=== PATIENT | male | born 2005 | race African-American/Black ===

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

== ENCOUNTER 2024-07-26 18:48 | Observation (INO) | payer OTHER ==
[~2024-07-26] VITALS: Ht 182.9 cm; Wt 70.4 kg
[2024-07-26 20:27] LABS: BASOPHILS ABSOLUTE AUTO 0.04 K/mm3 (0.00-0.23); BASOPHILS PERCENT AUTO 1 % (0-2); EOSINOPHILS ABSOLUTE AUTO 0.17 K/mm3 (0.00-0.68); EOSINOPHILS PERCENT AUTO 3 % (0-6); Hematocrit 34.7 % (37.0-53.0); Hemoglobin 11.6 g/dL (13.5-17.5); IMMATURE GRAN ABSOLUTE AUTO 0.02 K/mm3 (0.00-0.10); IMMATURE GRAN PERCENT AUTO 0 % (0-1); LYMPHOCYTES ABSOLUTE AUTO 1.82 K/mm3 (0.84-5.20); LYMPHOCYTES PERCENT AUTO 26 % (21-46); MONOCYTES ABSOLUTE AUTO 0.54 K/mm3 (0.16-1.47); MONOCYTES PERCENT AUTO 8 % (4-13); Mean Corpuscular HGB 27.1 pg (26.0-34.0); Mean Corpuscular HGB Conc 33.4 g/dL (31.5-36.5); Mean Corpuscular Volume 81 fL (80-100); Mean Platelet Volume 10.3 fL (9.1-12.4); NEUTROPHILS ABSOLUTE AUTO 4.31 K/mm3 (1.96-9.15); NEUTROPHILS PERCENT AUTO 62 % (41-73); Platelet Count 286 K/mm3 (150-400); RDW Coefficient Variation 13.2 % (11.7-14.2); RDW Standard Deviation 39.3 fL (35.1-46.3); Red Blood Cell Count 4.28 M/mm3 (4.30-5.90)
[2024-07-26 20:42] LABS: Salicylate <1.7 mg/dL (2.8-20.0)
[2024-07-26 20:57] LABS: Alanine Aminotransfer (ALT/SGP 24 U/L (12-78); Albumin/Globulin Ratio 1.1 (0.8-1.8); Alk Phos 115 U/L (58-237); Anion Gap 9 mmol/L (3-11); Aspartate Aminotrans (AST/SGOT 21 U/L (12-37); Bilirubin, Total 0.4 mg/dL (0.1-1.0); Blood Urea Nitrogen 13 mg/dL (8-21); CO2, Blood 26 mmol/L (21-32); Chloride, Blood 106 mmol/L (98-108); Globulin, Blood 3.5 g/dL (2.2-4.0); Glomerular Filtration Rate 111 (60-); Glucose, Blood 87 mg/dL (70-99); Potassium, Blood 4.1 mmol/L (3.5-5.5); Sodium, Blood 137 mmol/L (136-145); Total Protein, Blood 7.5 g/dL (6.4-8.2)
[2024-07-26 20:58] LABS: Source, Urine Clean Catch
[2024-07-26 20:58] LABS: Acetaminophen, Random <2.0 ug/mL (10.0-30.0); Ethanol (Alcohol), Blood, Med <3 mg/dL
[2024-07-26 21:18] LABS: Appearance, Urine Clear (Clear); Bilirubin, Urine Neg (Neg); Blood, Urine Neg (Neg); Color, Urine Yellow (P-Yellow); Glucose Qualitative, Urine Neg (Neg); Ketones, Urine Neg (Neg); Leukocyte Esterase, Urine Neg (Neg); Nitrite, Urine Neg (Neg); Protein, Urine 1+ (Neg); Specific Gravity, Urine 1.015 (1.003-1.022); Urobilinogen, Urine NORM (Normal); pH, Urine 6.5 (5.0-8.0)
[2024-07-26 21:45] LABS: U Amphetamine Screen Not Detected; U Barbituate Screen Not Detected; U Benzodiazapine Screen Not Detected; U Buprenorphine Screen Not Detected; U Cannabinoids Screen Not Detected; U Cocaine Screen Not Detected; U Methadone Screen Not Detected; U Methamphetamine Screen Not Detected; U Opiates Screen Not Detected; U Oxycodone Screen Not Detected; U Phencyclidine Screen Not Detected
[2024-07-26] MEDS ORDERED: Melatonin 5 MG Tablet PO ONE (23:55)
[2024-07-27] MEDS ORDERED: CATAPRES0.1 MG PO ×2 (12:41→12:42)
[2024-07-27] MEDS ORDERED: CATAPRES0.2 M1 PO (12:42)
== END 2024-07-27 11:03 | disposition other institution (70) ==
LOC: ER 18:48 → EOR 18:49
PROVIDERS: Student in an Organized Health Care Education/Training Program; ADMIT Student in an Organized Health Care Education/Training Program
DX: F43.25 Adjustment disorder with mixed disturbance of emotions and conduct (principal); R45.851 Suicidal ideations; F41.9 Anxiety disorder, unspecified; F32.9 Major depressive disorder, single episode, unspecified; Z79.899 Other long term (current) drug therapy
CPT/HCPCS: 80053; 80320; 85025; 93005; 93010; 99285-25; A9270; G0378; G0480

== ENCOUNTER 2024-07-27 09:32 | Inpatient (IN) | payer OTHER ==
[~2024-07-27] VITALS: Ht 177.8 cm; Wt 68.1 kg
[2024-07-27 11:02] VITALS: BP 119/73
[2024-07-27] MEDS ORDERED: DiphenhydrAMINE HCl 50 MG/ML 1ML Vial IM PRN (11:05)
[2024-07-27] MEDS ORDERED: Haloperidol Lactate Inj. 5 MG/ML Injection IM PRN (11:05)
[2024-07-27] MEDS ORDERED: Acetaminophen 325 MG TABLET PO PRN (11:10)
[2024-07-27] MEDS ORDERED: Aluminum Hydroxide 320MG/5ML 473 ML PO PRN (11:10)
[2024-07-27] MEDS ORDERED: Melatonin 3 MG Tab PO PRN (11:10)
[2024-07-27] MEDS ORDERED: LORazepam 2 MG/ML 1ML Injection IM PRN (11:10)
[2024-07-27] MEDS ORDERED: Calcium Carbonate 500 MG Tab Chew PO PRN (11:10)
[2024-07-27] MEDS ORDERED: DiphenhydrAMINE HCl 50 MG Cap PO PRN (11:10)
[2024-07-27] MEDS ORDERED: TraZODone HCl 50 MG Tab PO PRN (11:15)
[2024-07-27] MEDS ORDERED: Haloperidol 5 MG Tab PO PRN (11:15)
[2024-07-27] MEDS ORDERED: Ibuprofen 600 MG Tab PO PRN (11:15)
[2024-07-27] MEDS ORDERED: Ondansetron 4 MG SoluTab MM PRN (11:15)
[2024-07-27] MEDS ORDERED: HydrOXYzine Pamoate 50 MG Cap PO PRN (11:15)
[2024-07-27] MEDS ORDERED: Polyethylene Glycol 3350 17 gm PO PRN (11:15)
[2024-07-27] MEDS ORDERED: OLANZapine ODT 10 MG Tab MM PRN (11:15)
[2024-07-27] MEDS ORDERED: LORazepam 2 MG Tab PO PRN (11:20)
[2024-07-27] MEDS ORDERED: CATAPRES0.1 MG PO ×2 (12:41→12:42)
[2024-07-27] MEDS ORDERED: CATAPRES0.2 M1 PO (12:42)
--- NOTE | 2024-07-27 13:33 | NUR ---
TERESA GOES BY "[facility]," HE COMES IN FROM [place], HE WAS MEETING WITH HIS PSYCHIATRIST REMOTELY WHILE AT [facility] [employer], HE HAS BEEN FEELING MORE ANXIOUS AND "LOW," HE HAS CUT HIS INNER ARM A FEW TIMES OVER THE LAST COUPLE OF WEEKS, NOT IN AN ATTEMPT TO KILL HIMSELF BUT BECAUSE HE FELT BAD ABOUT HIMSELF AND THAT HE FEELS HE NEEDS TO FEEL THE PAIN, ABOUT A MONTH AGO HE WAS FEELING SUICIDAL AND AFTER GETTING "MARINA DRUNK," HE WAS JUMPING OUT IN FRONT OF CARS WITH THE INTENT TO KILL HIMSELF, HE WAS ABLE TO STOP HIMSELF FROM COMPLETING THIS. hE STATES HE WAS DIAGNOSED WITH BIPOLAR I AT 17YO, HE HAS HAD SOME PSYCHOSIS EPISODES A FEW YEARS AGO AFTER ILLICIT SUBSTANCE USE, DENIES ANY CURRENT //. HE HAS TAKEN ZYPREXA IN THE PAST, THIS CAUSED WEIGHT GAIN AND PT STOPPED TAKING THIS, PT HAS TAKEN ABILIFY RECENTLY, HOWEVER HE STOPPED THIS BECAUSE HE FELT TOO "NUMB."
[2024-07-27] MEDS ORDERED: Nicotine 21 MG PATCH TOP ONE (14:45)
[2024-07-27] MEDS ORDERED: Nicotine Polacrilex 2 MG Gum PO PRN (15:00)
--- NOTE | 2024-07-27 16:42 | NUR ---
SHIFT SUMMARY ASSUMED CARE PT AT 1600, SINCE THAT TIME PT HAS BEEN IN THE MILIEU, ENGAGING WITH HIS PEERS, APPROPRIATE AND COOPERATIVE, INVOLVED IN GROUPS/SNACK, HE HAS RECEIVED ONGOING Q15 MIN VISUAL SAFETY CHECKS THROUGHOUT THE SHIFT
--- NOTE | 2024-07-27 19:10 | NUR ---
PIERCINGS PT NOTED TO HAVE SEPTUM AND A RIGHT EAR PIERCINGS IN PLACE AND INTACT. WAS UNABLE TO REMOVE PIERCINGS. PT VERBALLY CONTRACTED FOR SAFETY.
[2024-07-27 19:32] VITALS: BP 136/72
--- NOTE | 2024-07-28 04:27 | NUR ---
SHIFT SUMMARY PT PRESENT IN HALLWAY INTERACTING WITH PEERS AT START OF SHIFT. PT DENIES ANY SI, HI, THOUGHTS OF SELF HARM OR HALLUCINATIONS. MOOD IS ELEVATED. PT VOICED CONCERN AND APPEARS MOTIVATED TO GET BACK TO THE [employer]. SUPERFICIAL CUTS OBSERVED TO FOREARMS (3 TO LEFT ARM AND 2 TO RIGHT ARM), THAT APPEAR TO BE HEALING WITH NO SIGNS OF INFECTION. PT HAD EVENING SNACK. RECEIVED PRN MELATONIN AND TRAZODONE X2 AND HAS APPEARED TO SLEEP THROUGHOUT THE NIGHT, WITH RESPIRATIONS CONFIRMED. Q15 MINUTE CHECKS TO CONTINUE PER UNIT PROTOCOL/PT SAFETY.
[2024-07-28 06:29] LABS: CHOL/HDL RATIO 2.3; Cholesterol 121 mg/dL (50-200); HDL Cholesterol 53 mg/dL (>39); LDL/HDL RATIO 1.1; Low Density Lipoprotein Chol 58 mg/dL (0-110); Triglycerides 49 mg/dL (30-140); Very Low Density Lipoprot Chol 9 mg/dL (6-28)
[2024-07-28] MEDS ORDERED: Multivitamins 1 Tab PO SCH (09:00)
[2024-07-28] MEDS ORDERED: CloNIDine 0.1 MG Tab PO PRN (10:00)
--- NOTE | 2024-07-28 12:36 | NUR ---
IMPORTANT DISCHARGE INFORMATION PATIENT IS REQUESTING DISCHARGE ON 07/31/24 TO [facility] [address] [place] [facility] [place] [id number]. TRANSPORTATION: [facility] NEEDS TO BE CALLED WEDNESDAY MORNING FOR A RIDE TO [facility]. [facility] CONT[facility] CARE. [facility] [address] PHARMACY: [facility] ([facility]) [phone] JERRY AT [facility] IS HIS CUSTOM SHOE DESIGNER AND MAKER (SHE IS THE ONE TO ASK ABOUT [facility] APPLICATION FOR HOT[facility] STAY.) [phone] EXTENSION #[id number]
--- NOTE | 2024-07-28 13:31 | NUR ---
DISCHARGE SUMMARY PT BELONGINGS RETURNED AND CHECKED WITH IVA AND THIS RN. WENT OVER DC PAPERWORK WITH PATIENT AND HE STATED UNDERSTANDING OF SCHEDULED UPCOMING APPTS. ESCORTED OUT OF UNIT BY THIS RN
--- NOTE | 2024-07-28 14:15 | NUR ---
PATIENT GIVES VERBAL CONSENT TO SPEAK TO MARIANELA CHAN AT [facility] RELATING TO HIS CONDITION AND DISCHARGE INSTRUCTIONS. HE WISHES TO RETURN TO [facility] AT [facility] 30 DAY MEDICAL CLEARANCE.
[2024-07-28] MEDS ORDERED: Nicotine 21 MG PATCH TOP SCH (15:00)
--- NOTE | 2024-07-28 15:12 | NUR ---
SHIFT SUMMARY PT DID NOT WAKE FOR BKFT THIS MORNING. LATER HE STATED HE DID NOT SLEEP WELL DUE TO HIS ROOM MATE BEING NOISY AND MAKING "WEIRD SOUNDS" ONCE UP, HE PARTICIPATED IN THE MILIEU AND ENGAGED WITH HIS PEERS. HE IS COMPLIANT WITH HIS MEDICATIONS. HE HAS ASKED TO DC ON WEDNESDAY, VIELKA HAS WORKED "A LOT" ON HIS CASE THIS SHIFT, SEE HER NOTES. HE HAS VISITORS TODAY, HIS RN FROM [employer] IS VISITING ALONG WITH HIS SALES EXHIBITOR FROM THERE. THEY ARE HOPING TO ENCOURAGE HIM TO STAY LONGER AT [facility]. IF NOT, PT WILL HAVE TO GO TO THE [facility] AND WAIT TO RETURN TO THE [facility]. PT HAS CONTINUED TO HAVE Q15 MIN SAFETY CHECKS THROUGHOUT SHIFT
[2024-07-28 19:54] VITALS: BP 124/72
[2024-07-28] MEDS ORDERED: CloNIDine 0.1 MG Tab PO SCH (21:00)
--- NOTE | 2024-07-28 22:04 | NUR ---
JEWELRY SILVER HOOP IN RIGHT EAR. PT STATES IT IS NOT ABLE TO BE TAKEN OUT.
--- NOTE | 2024-07-29 04:02 | NUR ---
SHIFT SUMMARY PT ANXIOUS AT START OF SHIFT, TREATED PER EMAR. DENIES SI, HI, AVTH AT THIS TIME. SPENT TIME IN DAY ROOM WATCHING MOVIE AND WAS TALKING TO THIS RN AT BEGINNING OF SHIFT ABOUT ANIME AND MUSIC. PT EXPRESSED FRUSTRATION AT THERE NOT BEING OTHER PEOPLE HIS AGE TO TALK TO. GOAL ORIENTED AND COOPERATIVE W/ CARE. PT ALSO EXPRESSED CONCERN, STATING, "I DON'T WANT PEOPLE TO THINK I'M CRAZY BECAUSE OF A PANIC ATTACK".
[2024-07-29 07:53] VITALS: BP 117/69
--- NOTE | 2024-07-29 16:49 | NUR ---
SHIFT SUMMARY: PT ALERT, ORIENTED AND COOPERATIVE WITH CARE. COMPLIANT WITH AM MEDICATION. PT ATTENDED MEALS AND WAS PRESENT ON THE UNIT. WENT TO GROUP, SPENT TIME RESTING IN HIS ROOM AND WATCHING TV IN THE DAY ROOM.
[2024-07-29 20:00] VITALS: BP 121/92
[2024-07-29 20:12] VITALS: BP 128/91
--- NOTE | 2024-07-29 22:50 | NUR ---
JEWELRY HOOP NOTED IN PT'S RIGHT EARLOBE
--- NOTE | 2024-07-30 04:28 | NUR ---
SHIFT SUMMARY NO ACUTE EVENTS THIS EVENING. PT DENIES SI, HI, AVTH. PT INTERACTING W/ PEERS/STAFF AND WENT TO SNACKTIME AND WATCHED TV IN DAYROOM BEFORE BED. APPEARED LESS ANXIOUS THAN PREVIOUS NIGHT AND IN COMMUNITY MEETING PAPER, STATED, "I GOT A NEW ROOMMATE AND HE'S PRETTY COOL". HOOP IN RIGHT EARLOBE. CONTINUES TO HAVE HAIR COVER EYES AND MAKES LITTLE TO NO EYECONTACT.
[2024-07-30 07:52] VITALS: BP 110/57
--- NOTE | 2024-07-30 09:33 | NUR ---
PT AT NURSES STATION, NOTED TO HAVE SCANT BLEEDING FROM AN OLD CUT WOUND ON HIS ARM. STATES THAT A SCAB CAME OFF. BANDAID PLACED. PT TALKED WITH MAXX MARINA THEY HAVE ESTABLISHED A GOOD RAPOR WITH EACHOTHER. PT DISCUSSED FEELINGS REGARDING BEING IN THE UNIT AND HIS DISHARGE PLANS. DISCUSSED THE PLANS THAT UNIT NURSE FORMING PROCESS WORKER IS WORKING FOR A SAFE DISCHARGE PLAN. PT STATES THAT HE HAS NEVER BEEN IN A [facility] WHICH IS WHERE HE WILL BE GOING IF HE LEAVES BEFORE A DISCHARE PLAN IS IN PLACE. PT VERBALIZED UNDERSTANDING AND IS AGREEABLE TO STAYING FOR THE TIME BEING. HE WENT TO THE DAY ROOM AND WAS WATCHING AND TALKING WITH PEERS AND STAFF.
--- NOTE | 2024-07-30 17:42 | NUR ---
SHIFT SUMMARY: PT ALERT, ORIENTED AND COOPERATIVE THROUGHOUT THE DAY. PT WAS ENGAGED IN UNIT MILIEU AND SPENT TIME TALKING WITH HIS ROOM MATE. PT APPEARS TO BE IN BETTER SPIRITS THIS AFTERNOON. HE HAD A VISIT WITH STAFF FROM [facility] THIS AFTERNOON WHICH APPEARED TO GO WELL. PT ATTENDED MEALS AND WAS COMPLIANT WITH MEDICATIONS.
[2024-07-30 20:00] VITALS: BP 136/85
--- NOTE | 2024-07-30 22:19 | NUR ---
JEWELRY HOOP NOTED IN PT'S RIGHT EARLOBE.
--- NOTE | 2024-07-31 04:46 | NUR ---
SHIFT SUMMARY NO ACUTE EVENTS THIS EVENING. PT DENIES SI, HI, AVTH. PT INTERACTING W/ STAFF AND PEERS. WENT TO SNACKTIME AND WATCHED TV IN DAYROOM. PT'S INITIAL FRUSTRATION AT NOT HAVING ANYONE "HIS AGE" APPEARS RESOLVED, "MY ROOMMATE IS COOL". PT ALSO STATED, "I SET MY MIND TO STAYING TIL WEDNESDAY.".
[2024-07-31 08:18] VITALS: BP 126/93
--- NOTE | 2024-07-31 17:19 | NUR ---
SHIFT SUMMARY PT A/O X4; PLEASANT AND COOPERATIVE WITH CARE. HE DENIES SI, HI, AND HALLUCINATIONS. PT'S AFFECT IS SOMEWHAT GUARDED BUT HE DID PARTICIPATE IN ALL GROUPS AND MEALS THIS SHIFT. BANDAIDS TO FOREARMS, CDI. BANDAIDS HELP PT TO NOT PICK AT CUTS ON HIS ARMS. PT AWAITING DC TO [facility] UNTIL HE IS ABLE TO RETURN TO [facility]. PT AGREEABLE TO STAY UNTIL THESE ARRANGEMENTS CAN BE MADE.
[2024-07-31 20:11] VITALS: BP 129/72
--- NOTE | 2024-08-01 04:08 | NUR ---
SHIFT SUMMARY PT IN MILIEU AT START OF SHIFT. HE IS A&OX4 AND COOPERATIVE WITH CARE. BANDAIDES NOTED TO BILATERAL ARMS, NO S/S OF INFECTIONS. PT NOTED TO HAVE A RIGHT EAR PIERCING AND A SEPTUM PIERCING THAT ARE IN PLACE AND INTACT. HE DENIES ANY SI, HI, THOUGHTS OF SELF HARM OR HALLUCINATIONS. HE HAD EVENING SNACK, WAS COMPLIANT WITH MEDICATIONS AND RECIEVED PRN TRAZODONE. PT HAS APPEARED TO SLEEP THROUGHOUT THE NIGHT, WITH RESPIRATIONS CONFIRMED. Q15 MINUTE CHECKS TO CONTINUE PER UNIT PROTOCOL/PT SAFETY.
[2024-08-01 08:19] VITALS: BP 104/62
--- NOTE | 2024-08-01 16:21 | NUR ---
SHIFT SUMMARY PT A/O X4; PLEASANT AND COOPERATIVE WITH CARE. HE DENIES SI, HI, AND HALLUCINATIONS. PT'S [facility] FOR [facility] APPROVED, SO HE WILL DC TO A [facility] TOMORROW. PT IS EXCITED TO DISCHARGE TOMORROW. PT DID C/O SOME CP THIS SHIT AND REPORTS THAT IT HURTS TO BREATHE WHEN HIS CHEST HURTS. PT REPORTS THAT THE CP HAS BEEN OCCURING PERIODICALLY FOR SOME TIME NOW. HEART AND LUNGS AUSCULTATED AND SOUNDS WNL. EKG COMPLETED THIS SHIFT WELL AND IS IN THE HARD CHART. HE ATTENDED ALL GROUPS AND MEALS THIS SHIFT. PT CONTINUES TO BE MONITORED FOR SAFETY AND WELLNESS.
[2024-08-01 20:00] VITALS: BP 112/61
--- NOTE | 2024-08-02 04:16 | NUR ---
SHIFT SUMMARY PT IN GROUP ROOM AT START OF SHIFT, INTERACTS WITH STAFF AND PEERS. PT DENIES ANY SI OR THOUGHTS OF SELF HARM, STATES HE IS EXCITED TO BE DISCHARGED. SEPTUM AND RIGHT EAR PIERCINGS IN PLACE. BILATERAL ARM WOUNDS ARE HEALING WELL. RE-DRESSED RIGHT ARM BANDAGE PER PT REQUEST. PT COMPLIANT WITH MEDS. RECIEVED PRN TRAZODONE. PT WENT TO BED AT APPROIXMATELY 2200 AND PRESENTED TO NURSES STATION AT 0130. HE REPORTED FEELING ANXIOUS AND REQUESTED AND RECEIVED PRN DOSE OF CLONIDINE AND WENT BACK TO BED. PT IS STILL CURRENTLY IN BED AND APPEARS TO BE SLEEPING, RESPIRATIONS CONFIRMED. Q15 MINUTE CHECKS TO CONTINUE PER UNIT PROTOCOL/PT SAFETY.
--- NOTE | 2024-08-02 04:54 | NUR ---
MASS SCORE OF 3 PT PRESENTED TO NURSES STATION AT 0440, REPORTS HE IS RESTLESS, ANXIOUS AND HAVING A DIFFICULT TIME SLEEPING DUE TO RESTLESS PEERS ON THE UNIT. RECEIVED PRN VISTARIL AND WENT BACK TO BED.
[2024-08-02 08:25] VITALS: BP 112/60
--- NOTE | 2024-08-02 11:39 | NUR ---
IMPORTANT DISCHARGE INFORMATION [facility] COM[facility] AT 1PM TO TAKE HIM TO: [facility] ON [address] [facility] [address]. [place] [facility] FOLLOW UP WILL BE AT [facility] WALK IN CLINICS, TERESA ONLY NEEDS SERVICES FOR 25 DAYS BEFORE RETURNNING TO [facility]. PHARMACY: [facility] [phone]
--- NOTE | 2024-08-02 12:59 | NUR ---
DISCHARGE NOTED D/C ARRANGEMENTS MADE BY VIELKA COOLER SERVICER. PT GIVEN D/C PACKET AND STATES HE UNDERSTANDS TO F/U WITH [facility]. HE STATES HE WILL CALL TO MAKE SURE HE GETS AN APPOINTMENT. MEDICATIONS WERE CALLED TO [facility] [place], BY MERCEDEZ CHAN. D/C FORM WAS SIGNED. AND PT WAS GIVEN HIS BELONGINGS BY ISI LILLY AND DRESSED IN HIS OWN CLOTHING. TRANSPORTATION TO [facility] ARRANGED BY VIELKA CHAN.
== END 2024-08-02 13:07 | disposition home or self-care (01) | DRG 882 ==
LOC: BHU 09:32
PROVIDERS: ADMIT Psychiatry & Neurology Psychiatry
DX: F43.25 Adjustment disorder with mixed disturbance of emotions and conduct (principal); Z59.00 Homelessness unspecified; R45.851 Suicidal ideations; F41.9 Anxiety disorder, unspecified; Z79.899 Other long term (current) drug therapy
CPT/HCPCS: 36415; 80061; 83036; A9270

== ENCOUNTER 2025-03-14 11:54 | Emergency (ER) | payer OTHER ==
[~2025-03-14] VITALS: Ht 177.8 cm; Wt 63.5 kg
[~2025-03-14 11:54] MED LIST: CATAPRES0.1 MG PO; CATAPRES0.2 M1 PO
[2025-03-14 14:07] LABS: BASOPHILS ABSOLUTE AUTO 0.06 K/mm3 (0.00-0.23); BASOPHILS PERCENT AUTO 1 % (0-2); EOSINOPHILS ABSOLUTE AUTO 0.24 K/mm3 (0.00-0.68); EOSINOPHILS PERCENT AUTO 4 % (0-6); Hematocrit 39.6 % (37.0-53.0); Hemoglobin 13.4 g/dL (13.5-17.5); IMMATURE GRAN ABSOLUTE AUTO 0.01 K/mm3 (0.00-0.10); IMMATURE GRAN PERCENT AUTO 0 % (0-1); LYMPHOCYTES ABSOLUTE AUTO 2.01 K/mm3 (0.84-5.20); LYMPHOCYTES PERCENT AUTO 36 % (21-46); MONOCYTES ABSOLUTE AUTO 0.53 K/mm3 (0.16-1.47); MONOCYTES PERCENT AUTO 10 % (4-13); Mean Corpuscular HGB Conc 33.8 g/dL (31.5-36.5); Mean Corpuscular Volume 80 fL (80-100); NEUTROPHILS ABSOLUTE AUTO 2.75 K/mm3 (1.96-9.15); NEUTROPHILS PERCENT AUTO 49 % (41-73); NRBC ABSOLUTE 0.00 K/mm3 (0.00-0.02); NRBC Auto 0.0 /100 WBC (0.0-0.2); Platelet Count 213 K/mm3 (150-400); RDW Coefficient Variation 13.7 % (11.7-14.2); RDW Standard Deviation 40.1 fL (35.1-46.3)
[2025-03-14 14:36] LABS: Alanine Aminotransfer (ALT/SGP 23.0 U/L (12-78); Albumin, Blood 4.0 g/dL (3.4-5.0); Albumin/Globulin Ratio 1.2 (0.8-1.8); Anion Gap 8.0 mmol/L (3-11); Aspartate Aminotrans (AST/SGOT 26.0 U/L (12-37); Bilirubin, Total 0.6 mg/dL (0.1-1.0); Blood Urea Nitrogen 11.0 mg/dL (8-24); CO2, Blood 27.0 mmol/L (21-32); Calcium, Blood 9.5 mg/dL (8.5-10.1); Chloride, Blood 107.0 mmol/L (98-108); Creatinine, Blood 1.02 mg/dL (0.60-1.20); Globulin, Blood 3.3 g/dL (2.2-4.0); Glucose, Blood 90.0 mg/dL (70-99); Potassium, Blood 4.1 mmol/L (3.5-5.5); Sodium, Blood 138.0 mmol/L (136-145); Total Protein, Blood 7.3 g/dL (6.4-8.2)
[2025-03-14] MEDS ORDERED: NS 1,000 ML IV SCH (15:10)
== END 2025-03-14 16:30 | disposition home or self-care (01) ==
LOC: ER 11:54
PROVIDERS: Physician Assistant
DX: R55 Syncope and collapse (principal); E86.0 Dehydration; R94.4 Abnormal results of kidney function studies; Z79.899 Other long term (current) drug therapy; Z59.89 Other problems related to housing and economic circumstances
CPT/HCPCS: 80053; 85025; 93005; 93010; 99284-25; J7030